=== PATIENT | female | born 1965 | race Caucasian/White ===

== ENCOUNTER 2022-08-17 06:25 | Day surgery (SDC) | payer OTHER ==
[~2022-08-17] VITALS: Ht 177.8 cm; Wt 100.0 kg
[~2022-08-17 06:25] MED LIST: NORCO 5-325 TA1 EACH PO
--- NOTE | 2022-08-17 08:13 | NUR ---
08/17/22 0813 Tia Chin 0809-PATIENT ARRIVED TO PACU ON RA RR EVEN. PATIENT AWAKE DENIES PAIN OR NAUSEA. ABDOMEN SOFT. IVF INFUSING. ENCOURAGED TO PASS GAS.
--- NOTE | 2022-08-17 09:09 | NUR ---
0900 PATIENT BACK FROM PACU. PATIENT ALERT AND ORIENTED. PATIENT NAUSEATED. GIVEN PRN MEDICINE SEE EMAR. PATIENT BREATHING EQUAL AND UNLABORED. OXYGEN SATURATIONS ABOVE 95% ON ROOM AIR. PATIENT DENIES PAIN. AT BEDSIDE. PATIENT STATES "I AM FEELING MUCH BETTER THANK YOU" CRACKERS GIVEN TO HER. CALL LIGHT WITHIN REACH NO FUTHER NEEDS. NO QUESTIONS AT THIS TIME.
--- NOTE | 2022-08-17 09:57 | NUR ---
0936 PATIENT DENIES FEELING NAUSEATED. PATIENT STATES "I WOULD LIKE TO GO HOME NOW." DISCHARGE CRITERIA MET AND INSTRUCTIONS GIVEN. NO QUESTIONS AT THIS TIME. PATIENT WHEELED OUT OF FACILITY TO PRIVATE AUTO NO FUTHER NEEDS.
--- NOTE | 2022-08-17 12:51 | NUR ---
PT ALERT, ORIENTED AND HERE FOR HER FIRST SCOPE. ADMITTED SHE IS NOT VERY GOOD ABOUT HER HEALTHCARE, AND DOESN'T HAVE A PCP. GAVE SUGGESTONS, GAVE OVERVIEW OF WHAT SHE COULD EXPECT. HER KEV WILL BE HERE AT [place]. PT REQUESTED PRAYER. WILL FOLLOW NEEDED
--- NOTE | 2022-08-17 15:17 | OR ---
[facility] [address] [place], [place] [address] Signed DATE OF OPERATION: 08/17/2022 SURGEON: Jesus Zaragoza MD PREOPERATIVE DIAGNOSES: 1. Colon screening. 2. Family history of colon cancer (sister age 40). POSTOPERATIVE DIAGNOSES: Polyps x3. PROCEDURES: 1. Total colonoscopy to cecum with cold snare polypectomy x2. 2. Cold morcellation polypectomy x1. ANESTHESIA: Intravenous sedation, fentanyl 100 mcg and Versed 6 mg. INDICATIONS FOR THE PROCEDURE: This 57-year-old white woman is a patient of Dr. Jared Bass. She was referred by Dr. Bass for screening and colonoscopy. She has never had colonoscopy in the past. She does have family history of colon cancer in her sister at age 40, who is alive and well following treatment. The patient herself has no symptoms of bleeding, diarrhea, or constipation. She understands the risks of bleeding, infection, perforation related to colonoscopy and wished to proceed. FINDINGS: The prep was excellent. Complete colonoscopy was undertaken to the cecum without question. She had three polyps, one in the cecum, one at the hepatic flexure, and other in the sigmoid. All were excised completely. There were no other findings of concern. DESCRIPTION OF PROCEDURE: The patient was brought to the endoscopy suite and placed in lateral decubitus position given intravenous sedation to a point of slurred speech and nystagmus. Digital rectal examination was normal. An Olympus video colonoscope was passed into the rectum and manipulated throughout the colon, ultimately intubating the cecum itself. The ileocecal valve and appendiceal orifice were normal. A very small polyp was noted. The cecum was excised with cold morcellation technique. Further withdrawal of scope showed another similar such polyp Electronically Signed By: JESUS ZARAGOZA MD 08/17/22 1517 PATIENT NAME: SYDNEE MORRISON OPERATIVE REPORT DATE OF : 63 REPORT #: [id number] PHYSICIAN: JESUS ZARAGOZA MD PCP: NO PRIMARY CARE PHYSICIAN REPORT IS CONFIDENTIAL AND NOT TO BE RELEASED WITHOUT AUTHORIZATION [facility] [address] [place], [place] [address] Signed at the hepatic flexure, this was excised with cold snare technique without problem. Further withdrawal showed yet another polyp in the sigmoid, similarly excised with cold snare technique. Photographs were taken throughout. Withdrawal of the scope to the rectum allowed for retroflexed view, which was normal. Scope was removed. The patient was taken to the recovery room in good condition. CONCLUDING DIAGNOSIS: Polyps x3. PLAN: Recommend repeat colonoscopy in three years or sooner if clinically indicated. She will return to the ongoing care of Dr. Bass. MD CANDY Esteves/PAMELAL /[id number] cc: Jared Bass MD Copies: JARED BASS MD ~ Electronically Signed By: JESUS ZARAGOZA MD 08/17/22 1517 PATIENT NAME: SYDNEE MORRISON OPERATIVE REPORT DATE OF : 63 REPORT #: [id number] PHYSICIAN: JESUS ZARAGOZA MD PCP: NO PRIMARY CARE PHYSICIAN REPORT IS CONFIDENTIAL AND NOT TO BE RELEASED WITHOUT AUTHORIZATION
--- NOTE | 2022-08-21 15:20 | PATH ---
[facility] [address] [place] [facility] [place] [place] [address] Signed SPECIMEN(S): A CECUM POLYP SPECIMEN(S): B HEPATIC FLEXURE POLYP SPECIMEN(S): C SIGMOID POLYP SPECIMEN SOURCE: A. CECUM POLYP B. HEPATIC FLEXURE POLYP C. SIGMOID POLYP CLINICAL HISTORY: Family history of colon CA. Postop: Polyps x 3. FINAL PATHOLOGIC DIAGNOSIS: A. Cecum polyp: - Tubular adenoma (one fragment). B. Hepatic flexure polyp: - Tubular adenoma (one fragment). C. Sigmoid polyp: - Hyperplastic polyp (two fragments). JVR:[facility]:C2NR MICROSCOPIC EXAMINATION: Histologic sections of all submitted blocks are examined by light microscopy. These findings, together with the gross examination, support the pathologic diagnosis. GROSS DESCRIPTION: A. The specimen, labeled and designated "Lafollette, cecum polyp," is received in formalin and consists of two betancourt soft tissue fragments, ranging from 0.1-0.2 cm. Entirely submitted in (A1). B. The specimen, labeled and designated "Lafollette, hepatic flexure polyp," is received in formalin and consists of one betancourt soft tissue fragment, 0.4 cm. Entirely submitted in (B1). C. The specimen, labeled and designated "Lafollette, sigmoid polyp," is received in formalin and consists of three betancourt soft tissue fragments, ranging from 0.2-0.4 cm. Entirely submitted in (C1). VB (under the direct supervision of a pathologist) The Gross Description was prepared using a voice recognition system. The report was reviewed for accuracy; however, sound-alike word errors, addition and/or deletions may occur. If there is any question about this report, please contact Client Services. PATIENT NAME: SYDNEE MORRISON PATHOLOGY DATE OF : 63 REPORT #: [id number] PHYSICIAN: [facility] PCP: NO PRIMARY CARE PHYSICIAN REPORT IS CONFIDENTIAL AND NOT TO BE RELEASED WITHOUT AUTHORIZATION [facility] [address] [place], [place] [address] Signed PERFORMING LABORATORY: The technical component was performed by [employer], [address] [place] [address] (CLIA# [id number]). Professional interpretation was performed by [facility] - [facility], [address] [place] [id number] (CLIA#: [id number]). Diagnostician: Paul Diaz MD Pathologist Electronically Signed 08/21/2022 Copies: ~ PATIENT NAME: SYDNEE MORRISON PATHOLOGY DATE OF : 63 REPORT #: [id number] PHYSICIAN: [facility] PCP: NO PRIMARY CARE PHYSICIAN REPORT IS CONFIDENTIAL AND NOT TO BE RELEASED WITHOUT AUTHORIZATION
== END 2022-08-17 09:30 | disposition home or self-care (01) ==
LOC: OPS 06:25 → DS 06:25 → OPS 07:30 → DS 13:00
PROVIDERS: ATTEND Surgery
PROC: 0DBL8ZX Excision of Transverse Colon, Via Natural or Artificial Opening Endoscopic, Diagnostic (ICD-10-PCS; 2022-08-17)
PROC: 0DBN8ZX Excision of Sigmoid Colon, Via Natural or Artificial Opening Endoscopic, Diagnostic (ICD-10-PCS; 2022-08-17)
PROC: 0DBH8ZX Excision of Cecum, Via Natural or Artificial Opening Endoscopic, Diagnostic (ICD-10-PCS; principal; 2022-08-17 07:30)
DX: Z12.11 Encounter for screening for malignant neoplasm of colon (principal); D12.0 Benign neoplasm of cecum; D12.3 Benign neoplasm of transverse colon; E66.01 Morbid (severe) obesity due to excess calories; Z80.0 Family history of malignant neoplasm of digestive organs; Z90.710 Acquired absence of both cervix and uterus
CPT/HCPCS: 99153; A9270; G0500; J2250; J3010; J7121